=== PATIENT | male | born 1955 | race Caucasian/White ===

== ENCOUNTER → 2016-12-20 | Outpatient (CLI) | payer MEDICARE ==
[~2016-12-20] MED LIST: ANAPROX DS550 MG PO; BACTRIM DS 8001 TA1 PO; CIPRO500 MG PO; FLEXERIL10 MG PO; VICODIN 5/500 505 MG PO; VICODIN 500 MG-1 TAB PO
== END | disposition home or self-care (01) ==
LOC: US 13:42
DX: I10 Essential (primary) hypertension (principal); I70.1 Atherosclerosis of renal artery

== ENCOUNTER → 2016-12-23 | Outpatient (CLI) | payer MEDICARE ==
[2016-12-23 11:44] LABS: FREE T4 0.88 ng/dl (0.76-1.46)
[2016-12-23 11:50] LABS: THYROID STIM HORMONE (HS) 2.08 uIU/ml (0.358-4.75)
== END | disposition home or self-care (01) ==
LOC: LAB 10:48
PROVIDERS: Family Medicine
DX: I10 Essential (primary) hypertension (principal); E66.9 Obesity, unspecified; R94.6 Abnormal results of thyroid function studies

== ENCOUNTER → 2017-01-01 | Outpatient (CLI) | payer MEDICARE | END | disposition home or self-care (01) | LOC: LAB 11:41 | PROVIDERS: Family Medicine | DX: I10 Essential (primary) hypertension (principal) ==

== ENCOUNTER → 2019-05-03 | Day surgery (SDC) | payer MEDICARE ==
[~2019-05-03] VITALS: Ht 193 cm; Wt 147.9 kg
[~2019-05-03] MED LIST changes: +AMLODIPINE BESY10 MG PO; +COREG25 MG PO; +COUMADIN5 M1 IV; +HYDRALAZINE HYD50 MG PO; +K-TAB20 MEQ PO; +LISINOPRIL20 MG PO; +Lasix80 MG PO
[2019-05-03 10:37] VITALS: BP 151/85
[2019-05-03 11:13] VITALS: BP 131/76
[2019-05-03 11:28] VITALS: BP 129/70
[2019-05-03 11:42] VITALS: BP 123/61
== END | disposition home or self-care (01) ==
LOC: SDC 04-30 10:15
DX: I48.91 Unspecified atrial fibrillation (principal); I11.0 Hypertensive heart disease with heart failure; I50.40 Unspecified combined systolic (congestive) and diastolic (congestive) heart failure; M54.12 Radiculopathy, cervical region; F32.9 Major depressive disorder, single episode, unspecified; F41.9 Anxiety disorder, unspecified; M19.90 Unspecified osteoarthritis, unspecified site; I25.10 Atherosclerotic heart disease of native coronary artery without angina pectoris; G47.30 Sleep apnea, unspecified; R74.8 Abnormal levels of other serum enzymes; R06.01 Orthopnea; R00.0 Tachycardia, unspecified; E66.01 Morbid (severe) obesity due to excess calories; Z68.39 Body mass index [BMI] 39.0-39.9, adult; Z79.899 Other long term (current) drug therapy; Z79.84 Long term (current) use of oral hypoglycemic drugs; Z88.8 Allergy status to other drugs, medicaments and biological substances; Z86.79 Personal history of other diseases of the circulatory system; Z96.651 Presence of right artificial knee joint